=== PATIENT | female | born 1945 | race Caucasian/White ===

== ENCOUNTER → 2016-12-29 | Outpatient (CLI) | payer MEDICARE, OTHER ==
[2016-12-29 08:46] LABS: CHLORIDE,CL 99 mmol/L (98-110); SODIUM,NA 141 mmol/L (136-146)
== END ==
LOC: MW.CHFP 07:56
PROVIDERS: ATTEND Physician Assistant
DX: E11.9 Type 2 diabetes mellitus without complications (principal); I10 Essential (primary) hypertension; E78.5 Hyperlipidemia, unspecified; M79.7 Fibromyalgia
CPT/HCPCS: 36415; 80053; 80061; 83036; 99214

== ENCOUNTER → 2017-01-25 | Outpatient (CLI) | payer MEDICARE, OTHER | LOC: MW.CHFP 08:00 | PROVIDERS: ATTEND Physician Assistant | DX: R22.0 Localized swelling, mass and lump, head (principal); M79.7 Fibromyalgia; E66.9 Obesity, unspecified; Z68.41 Body mass index [BMI] 40.0-44.9, adult | CPT/HCPCS: G0463 ==

== ENCOUNTER → 2017-02-09 | Outpatient (CLI) | payer MEDICARE, OTHER | END | disposition home or self-care (01) | LOC: MW.MNT 14:03 | PROVIDERS: ATTEND Physician Assistant | DX: E66.09 Other obesity due to excess calories (principal); E11.9 Type 2 diabetes mellitus without complications; Z68.41 Body mass index [BMI] 40.0-44.9, adult | CPT/HCPCS: 97802 ==

== ENCOUNTER 2017-04-05 00:53 | Observation (INO) | payer MEDICARE, OTHER ==
[2017-04-05] MEDS ORDERED: Sodium Chloride 0.9% 10 ML Syringe FLUSH PRN (01:09)
[2017-04-05] MEDS ORDERED: Sodium Chloride 0.9% 2.5 ML Syringe FLUSH PRN (01:09)
[2017-04-05] MEDS ORDERED: methylPREDNISolone Sodium Succinate 125 MG/2 ML SDV IVPUSH ONE (01:11)
[2017-04-05] MEDS ORDERED: Famotidine 20 MG/2 ML SDV IVPUSH ONE (01:11)
[2017-04-05] MEDS ORDERED: diphenhydrAMINE 50 MG/ML SDV IVPUSH ONE (01:11)
[2017-04-05] MEDS ORDERED: Sodium Chloride 0.9% 1,000 ML IV SCH (01:15)
--- NOTE | 2017-04-05 01:15 | EDM.PDOC ---
[id number] TONGUE AND FACE Time Seen by Provider: 04/05/17 00:59 - History of Present Illness INITIAL COMMENTS - FREE TEXT/NARRATIVE: HISTORY AND PHYSICAL: History of present illness: Patient is a 72-year-old female with history of hypertension who meds include lisinopril who presents with a concern tongue lip and facial swelling that began tonight she has had similar episodes in the past but not quite this severe she has difficulty speaking but does not complain of shortness of breath chest pain nausea vomiting fever chills Review of systems: As per history of present illness and below otherwise all systems reviewed and negative. Past medical history: As per history of present illness and as reviewed below otherwise noncontributory. Surgical history: As per history of present illness and as reviewed below otherwise noncontributory. Social history: No reported history of drug or alcohol abuse. Family history: As per history of present illness and as reviewed below otherwise noncontributory. Physical exam: HEENT: Atraumatic, normocephalic, pupils reactive, negative for conjunctival pallor or scleral icterus, mucous membranes moist, patient noted to have edema of her lips tongue and submental area Lungs: Clear to auscultation, breath sounds equal bilaterally, chest nontender. Heart: S1S2, regular, negative for clicks, rubs, or JVD. Abdomen: Soft, nondistended, nontender. Negative for masses or hepatosplenomegaly. Negative for costovertebral tenderness. Pelvis: Stable nontender. Genitourinary: Deferred. Rectal: Deferred. Extremities: Atraumatic, negative for cords or calf pain. Neurovascular unremarkable. Neuro: Awake, alert, oriented. Cranial nerves II through XII unremarkable. Cerebellum unremarkable. Motor and sensory unremarkable throughout. Exam nonfocal. Diagnostics: CBC CMP EKG chest x-ray soft tissue neck PT/INR Therapeutics: IV O2 monitor Solu-Medrol 125 mg IV Benadryl 50 mg IV Impression: #1 angioedema Definitive disposition and diagnosis as appropriate pending reevaluation and review of above. - Related Data Allergies Allergy/AdvReac Type Severity Reaction Status Date / Time lisinopril Allergy Other Verified 04/05/17 08:19 oxycodone Allergy Nausea Verified 04/05/17 02:09 Home Meds: Home Meds Aspirin [Halfprin] 81 mg PO BEDTIME 05/06/14 [History] Calcium Carbonate/Vitamin D3 [Calcium 600 + Vit D Tablet] 1 each PO BEDTIME [History] Multivitamin [Multivitamins] 1 each PO DAILY 05/06/14 [History] [place]-3 Fatty Acids/Fish Oil [Cvs Fish Oil 1,000 mg Softgel] 1 each PO BEDTIME 05/06/14 [History] Simvastatin [Zocor] 20 mg PO BEDTIME 05/06/14 [History] Ubidecarenone [Co Q-10] 100 mg PO BEDTIME 05/06/14 [History] metFORMIN [Glucophage] 1,000 mg PO BID 05/06/14 [History] Hydrochlorothiazide 25 mg PO DAILY #30 tablet 04/05/17 [Rx] Potassium Chloride [Klor-Con 10] 10 meq PO DAILY #30 tab.er 04/05/17 [Rx] amLODIPine [Norvasc] 10 mg PO DAILY #30 tablet 04/05/17 [Rx] Past Medical History Other HEENT History: wears glasses, has top and bottom dentures Cardiovascular History: Reports: High Cholesterol, Hypertension Respiratory History: Reports: None Gastrointestinal History: Reports: Colon Polyp, Other (See Below) Other Gastrointestinal History: occasional heartburn Genitourinary History: Reports: Renal Calculus Other Genitourinary History: hx kidney stones 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 Musculoskeletal History: Reports: Back Pain, Chronic, Osteoarthritis Other Musculoskeletal History: cris knee pain Neurological History: Reports: None Psychiatric History: Reports: None Endocrine/Metabolic History: Reports: Diabetes, Type II, Obesity/BMI 30+, Osteopenia Hematologic History: Reports: None Immunologic History: Reports: None Oncologic (Cancer) History: Reports: None Dermatologic History: Reports: None - Past Surgical History Head Surgeries/Procedures: Reports: None GI Surgical History: Reports: Colonoscopy Other Female Surgeries/Procedures: hx of hysteroscopy for uterine fibroids Social & Family History - Tobacco Use Smoking Status *Q: Former Smoker Years of Tobacco use: 30 Used Tobacco, but Quit: Yes - Alcohol Use Days Per Week of Alcohol Use: 0 Number of Drinks Per Day: 0 Total Drinks Per Week: 0 - Recreational Drug Use Recreational Drug Use: No Drug Use in Last 12 Months: No ED ROS GENERAL - Review of Systems Review Of Systems: ROS reveals no pertinent complaints other than HPI. ED EXAM, GENERAL - Physical Exam Exam: See Below (See dictation) Course - Vital Signs Last Recorded V/S: Last Vital Signs Temp 36.2 C 04/05/17 11:00 Pulse 79 04/05/17 04:00 Resp 21 H 04/05/17 16:00 BP 136/73 04/05/17 16:00 Pulse Ox 94 L 04/05/17 16:00 - Orders/Labs/Meds Labs: Laboratory Tests 04/05/17 04/05/17 04/05/17 Range/Units 01:25 01:25 01:25 WBC 11.40 H (4.0-11.0) K/uL RBC 4.83 (4.30-5.90) M/uL Hgb 12.7 (12.0-16.0) g/dL Hct 40.5 (36.0-46.0) % MCV 83.9 (80.0-98.0) fL MCH 26.3 L (27.0-32.0) pg MCHC 31.4 (31.0-37.0) g/dL RDW Std Deviation 48.9 (28.0-62.0) fl RDW Coeff of Eleuterio 16 H (11.0-15.0) % Plt Count 340 (150-400) K/uL MPV 10.20 (7.40-12.00) fL Neut % (Auto) 49.2 (48.0-80.0) % Lymph % (Auto) 37.4 (16.0-40.0) % [place] % (Auto) 5.9 (0.0-15.0) % Eos % (Auto) 7.1 H (0.0-7.0) % Baso % (Auto) 0.4 (0.0-1.5) % Neut # (Auto) 5.6 (1.4-5.7) K/uL Lymph # (Auto) 4.3 H (0.6-2.4) K/uL [place] # (Auto) 0.7 (0.0-0.8) K/uL Eos # (Auto) 0.8 H (0.0-0.7) K/uL Baso # (Auto) 0.0 (0.0-0.1) K/uL Nucleated RBC % 0.0 /100WBC Nucleated RBCs # 0 K/uL INR 0.99 (0.86-1.11) Sodium 140 (136-146) mmol/L Potassium 4.2 (3.5-5.1) mmol/L Chloride 100 (98-110) mmol/L Carbon Dioxide 29 (21-31) mmol/L BUN 14 (6.0-23.0) mg/dL Creatinine 0.9 (0.6-1.5) mg/dL Est Cr Clr Drug Dosing 51.28 mL/min Estimated GFR (MDRD) > 60.0 ml/min Glucose 116 H (60-110) mg/dL Calcium 9.5 (8.8-10.8) mg/dL Total Bilirubin 0.3 (0.1-1.5) mg/dL AST 26 (5-40) IU/L ALT 24 (8-54) IU/L Alkaline Phosphatase 78 (40-150) Total Protein 7.4 (6.0-8.0) g/dL Albumin 3.5 (3.4-4.8) g/dL Globulin 3.9 H (2.0-3.5) g/dL Albumin/Globulin Ratio 0.9 L (1.3-2.8) Meds: Medications Discontinued Medications Generic Name Dose Route Start Last Admin Trade Name Freq PRN Reason Stop Dose Admin Acetaminophen 650 mg 04/05/17 07:03 Tylenol PO Q4H PRN Pain (Mild 1-3)/fever Amlodipine Besylate 10 mg 04/05/17 09:00 04/05/17 08:31 Norvasc PO 10 mg DAILY [facility] Administration Aspirin 81 mg 04/05/17 21:00 Halfprin PO BEDTIME [facility] Calcium Carbonate 1 tab 04/05/17 21:00 Caltrate 600+D 1500 Mg-400 Units PO BEDTIME [facility] Diphenhydramine HCl 50 mg 04/05/17 01:11 04/05/17 01:44 Benadryl IVPUSH 04/05/17 01:12 50 mg ONETIME ONE Administration Diphenhydramine HCl 50 mg 04/05/17 07:45 04/05/17 13:08 Benadryl IVPUSH 50 mg Q6H [facility] Administration Epinephrine HCl 0.3 mg 04/05/17 03:28 04/05/17 04:28 Adrenalin 1:1000 SUBCUT 04/05/17 03:29 Not Given ONETIME ONE Epinephrine HCl 0.3 mg 04/05/17 04:30 04/05/17 04:27 Adrenalin 1:1000 SUBCUT 04/05/17 04:31 0.3 mg ONETIME ONE Administration Famotidine 20 mg 04/05/17 01:11 04/05/17 01:45 Pepcid IVPUSH 04/05/17 01:12 20 mg ONETIME ONE Administration Fish Oil 1 gm 04/05/17 21:00 Fish Oil PO BEDTIME [facility] Hydrochlorothiazide 25 mg 04/05/17 09:00 04/05/17 08:32 Hydrochlorothiazide PO 25 mg DAILY [facility] Administration Sodium Chloride 1,000 mls @ 125 mls/hr 04/05/17 01:15 04/05/17 01:44 Normal Saline IV 125 mls/hr STAT [facility] Administration Insulin Aspart 0 unit 04/05/17 06:45 04/05/17 16:49 Novolog SUBCUT 2 units ACBED [facility] Administration Protocol Metformin HCl 1,000 mg 04/05/17 09:00 04/05/17 08:31 Glucophage PO 1,000 mg BID [facility] Administration Methylprednisolone Sodium Succinate 125 mg 04/05/17 01:11 04/05/17 01:43 Solu-Medrol IVPUSH 04/05/17 01:12 125 mg ONETIME ONE Administration Methylprednisolone Sodium Succinate 125 mg 04/05/17 07:45 04/05/17 13:09 Solu-Medrol IVPUSH 125 mg Q6H [facility] Administration Multivitamins/Minerals 1 tab 04/05/17 09:00 04/05/17 08:32 Thera M Plus PO 1 tab DAILY [facility] Administration Non-Formulary Medication 100 mg 04/05/17 21:00 Ubidecarenone PO BEDTIME [facility] Nabumetone [Relafen] 1 each 04/05/17 09:00 04/05/17 08:40 1,000 Mg PO Not Given DAILY [facility] Potassium Chloride 10 meq 04/05/17 09:00 04/05/17 08:32 Klor-Con 10 PO 10 meq DAILY [facility] Administration Simvastatin 20 mg 04/05/17 21:00 Zocor PO BEDTIME [facility] Sodium Chloride 10 ml 04/05/17 01:09 Saline Flush FLUSH ASDIRECTED PRN Keep Vein Open Sodium Chloride 2.5 ml 04/05/17 01:09 Saline Flush FLUSH ASDIRECTED PRN Keep Vein Open Temazepam 15 mg 04/05/17 07:03 Restoril PO BEDTIME PRN Sleep Departure - Departure Time of Disposition: 02:00 Disposition: Admitted As Inpatient 68 Condition: Good Clinical Impression: Angioedema - Discharge Information
[2017-04-05 01:48] LABS: CHLORIDE,CL 100 mmol/L (98-110); SODIUM,NA 140 mmol/L (136-146)
[2017-04-05] MEDS ORDERED: EPINEPHrine 1:1000 1 MG/ML SDV SUBCUT ONE (03:28)
[2017-04-05] MEDS ORDERED: EPINEPHrine 1:1000 1 MG/1 ML Amp SUBCUT ONE (04:30)
--- NOTE | 2017-04-05 06:29 | PCM.HP ---
H&P History of Present Illness - General Date of Service: 04/05/17 Admit Problem/Dx: Admission Diagnosis/Problem Admission Diagnosis/Problem Angioedema Source of Information: Patient, Provider - History of Present Illness Initial Comments - Free Text/Narative: she presented to the ED with complaint of swelling of her tongue and a feeling of tightness and impending airway obstruction in her throat. She is already feeling much better. She has been on lisinopril on an ongoing basis. It was not started recently. - Related Data Allergies/Adverse Reactions: Allergies Allergy/AdvReac Type Severity Reaction Status Date / Time oxycodone Allergy Nausea Verified 04/05/17 02:09 Home Medications: Home Meds Aspirin [Halfprin] 81 mg PO BEDTIME 05/06/14 [History] Calcium Carbonate/Vitamin D3 [Calcium 600 + Vit D Tablet] 1 each PO BEDTIME [History] Lisinopril/Hydrochlorothiazide [Lisinopril-Hctz 20-12.5 mg Tab] 20 mg PO DAILY 05/06/14 [History] Multivitamin [Multivitamins] 1 each PO DAILY 05/06/14 [History] [place]-3 Fatty Acids/Fish Oil [Cvs Fish Oil 1,000 mg Softgel] 1 each PO BEDTIME 05/06/14 [History] Simvastatin [Zocor] 20 mg PO BEDTIME 05/06/14 [History] Ubidecarenone [Co Q-10] 100 mg PO BEDTIME 05/06/14 [History] metFORMIN [Glucophage] 1,000 mg PO BID 05/06/14 [History] Nabumetone [Relafen] 1,000 mg PO DAILY 10/08/15 [History] Past Medical History Other HEENT History: wears glasses, has top and bottom dentures Cardiovascular History: Reports: High Cholesterol, Hypertension. Denies: Heart Failure, Heart Valve Replacement, [place], Pulmonary Hypertension Respiratory History: Reports: None. Denies: Croup Gastrointestinal History: Reports: Colon Polyp, Other (See Below). Denies: Cirrhosis Other Gastrointestinal History: occasional heartburn Genitourinary History: Reports: Renal Calculus. 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 Musculoskeletal History: Reports: Back Pain, Chronic, Osteoarthritis, Other ( See Below) (she reports a history of fibromyalgia) Other Musculoskeletal History: cris knee pain Neurological History: Reports: None Psychiatric History: Reports: None Endocrine/Metabolic History: Reports: Diabetes, Type II, Obesity/BMI 30+, Osteopenia Hematologic History: Reports: None Immunologic History: Reports: None, Other (See Below) Oncologic (Cancer) History: Reports: None Dermatologic History: Reports: None - Infectious Disease History Infectious Disease History: Reports: Chicken Pox - Past Surgical History Head Surgeries/Procedures: Reports: None HEENT Surgical History: Reports: None GI Surgical History: Reports: Colonoscopy Other Female Surgeries/Procedures: hx of hysteroscopy for uterine fibroids Social & Family History - Family History Family Medical History: Noncontributory HEENT: Reports: None Cardiac: Reports: High Cholesterol, Hypertension Respiratory: Reports: None GI: Reports: None : Reports: None OBGYN: Reports: None Musculoskeletal: Reports: None Neurological: Reports: None Psychiatric: Reports: None Endocrine/Metabolic: Reports: None Hematologic: Reports: None Immunologic: Reports: None Dermatologic: Reports: None Oncologic: Reports: None - Tobacco Use Smoking Status *Q: Former Smoker Years of Tobacco use: 30 Used Tobacco, but Quit: Yes Month Tobacco Last Used: Sep 2004 Tobacco Use Comment: Quit smoking Sep 2004 Second Hand Smoke Exposure: No - Caffeine Use Caffeine Use: Reports: Coffee Caffeine Use Comment: 3cups/day - Alcohol Use Days Per Week of Alcohol Use: 0 Number of Drinks Per Day: 0 Total Drinks Per Week: 0 - Recreational Drug Use Recreational Drug Use: No Drug Use in Last 12 Months: No H&P Review of Systems - Review of Systems: Review Of Systems: See Below General: Denies: Fever, Chills Pulmonary: Denies: Shortness of Breath, Wheezing Cardiovascular: Denies: Chest Pain Gastrointestinal: Denies: Abdominal Pain, Black Stool, Bloody Stool, Vomiting Genitourinary: Denies: Dysuria, Frequency, Hematuria Skin: Denies: Jaundice Exam - Exam Exam: See Below - Vital Signs Vital Signs: Last Vital Signs Temp 97.5 F 04/05/17 00:59 Pulse 93 04/05/17 00:59 Resp 20 04/05/17 00:59 BP 165/74 H 04/05/17 00:59 Pulse Ox 99 04/05/17 00:59 Weight: 112.6 kg - Exam General: Alert, Oriented, Cooperative HEENT: Mucosa Moist & [place], Other (slight dysarthria; slight diffuse tongue swelling; no feeling now of impending airway obstruction) Neck: Supple, Trachea Midline Lungs: Clear to Auscultation, Normal Respiratory Effort Cardiovascular: Regular Rate, Regular Rhythm Abdomen: Soft. No: Tenderness (Female) Exam: Deferred Rectal (Female) Exam: Deferred Extremities: No: Clubbing, Edema Neurological: Cranial Nerves Intact. No: Normal Speech (slight dysarthria) Neuro Extensive - Motor, Sensory, Reflexes: No: Tongue Deviation (L), Facial palsy (L), Facial Palsy (R) - Patient Data Result Diagrams: 04/05/17 01:25 04/05/17 01:25 *Q Meaningful Use (ADM) - VTE *Q VTE Criteria *Q: - Stroke *Q Stroke Criteria *Q: - AMI *Q AMI Criteria *Q: - Problem List (1) Angioedema SNOMED Code(s): 54665119 ICD Code: T78.3XXA - ANGIONEUROTIC EDEMA, INITIAL ENCOUNTER Status: Acute Current Visit: Yes Problem List Initiated/Reviewed/Updated: Yes Orders Last 24hrs: Active Orders 24 hr Category Date Time Status NPO Now [Nothing per Oral Now Diet] [DIET] Diet 04/05/17 Breakfast Active Aspirin [Halfprin] Med 04/05/17 21:00 Ordered 81 mg PO BEDTIME Calcium Carbonate/Vitamin D3 [Calcium 600 + Vit D Med 04/05/17 21:00 Ordered Tablet] 1 each PO BEDTIME Fish Oil/[place]-3 Fatty Acids [Fish Oil] Med 04/05/17 21:00 Ordered 1 each PO BEDTIME Multivitamin [Multivitamins] Med 04/05/17 09:00 Ordered 1 each PO DAILY Nabumetone [Relafen] Med 04/05/17 09:00 Ordered 1,000 mg PO DAILY Simvastatin [Zocor] Med 04/05/17 21:00 Ordered 20 mg PO BEDTIME Ubidecarenone Med 04/05/17 21:00 Ordered 100 mg PO BEDTIME diphenhydrAMINE [Benadryl] Med 04/05/17 07:45 Active 50 mg IVPUSH Q6H metFORMIN [Glucophage] Med 04/05/17 09:00 Ordered 1,000 mg PO BID methylPREDNISolone Sod Succ [Solu-MEDROL] Med 04/05/17 07:45 Active 125 mg IVPUSH Q6H Medication Orders Diphenhydramine HCl (Benadryl) 50 mg IVPUSH Q6H [facility] Methylprednisolone Sodium Succinate (Solu-Medrol) 125 mg IVPUSH Q6H [facility] Non-Formulary Medication (Calcium Carbonate/Vitamin D3 [Calcium 600 + Vit D Tablet]) 1 each PO BEDTIME [facility] Sodium Chloride (Saline Flush) 10 ml FLUSH ASDIRECTED PRN PRN Reason: Keep Vein Open Sodium Chloride (Saline Flush) 2.5 ml FLUSH ASDIRECTED PRN PRN Reason: Keep Vein Open Assessment/Plan Comment:: see orders possible discharge later today or tomorrow am. hold lisinopril alternate antihypertensive. Paul Vasquez MD
[2017-04-05] MEDS: Insulin Aspart 100 Units/ML 3 ML Pen SUBCUT SCH ×4 (07:02→16:49)
[2017-04-05] MEDS ORDERED: Acetaminophen 325 MG Tab PO PRN (07:03)
[2017-04-05] MEDS ORDERED: Temazepam 15 MG Cap PO PRN (07:03)
[2017-04-05] MEDS: methylPREDNISolone Sodium Succinate 125 MG/2 ML SDV IVPUSH SCH ×2 (08:33→13:09)
[2017-04-05] MEDS: diphenhydrAMINE 50 MG/ML SDV IVPUSH SCH ×2 (08:34→13:08)
[2017-04-05] MEDS ORDERED: amLODIPine 5 MG Tab PO SCH (09:00)
[2017-04-05] MEDS ORDERED: metFORMIN 500 MG Tab PO SCH (09:00)
[2017-04-05] MEDS ORDERED: Multivitamins with Iron/Calcium/Folic Acid/Minerals Tab PO SCH (09:00)
[2017-04-05] MEDS ORDERED: Potassium Chloride 10 MEQ Tab.ER PO SCH (09:00)
[2017-04-05] MEDS ORDERED: Hydrochlorothiazide 25 MG Tab PO SCH (09:00)
[2017-04-05] MEDS ORDERED: NABUMETONE 1000 MG PO SCH (09:00)
--- NOTE | 2017-04-05 11:16 | CR ---
EXAM DATE: 04/05/17 PATIENT'S AGE: 72 Patient: MONIKA KOHLER Facility: [place], [place] Site . Site : 1945 Study: XRay Chest [id number]/27/2017 2:08:43 AM Ordering Physician: Gilma Sung Final Report: INDICATION: Pain and tongue swelling and 1900 hours tonight TECHNIQUE: Chest 2 views. COMPARISON: None FINDINGS: Cardiovascular and mediastinum: Cardiomegaly. Mediastinum is within normal limits. Lungs and pleural spaces: Lungs are clear. No sign of infiltrate or mass. No sign of pleural effusion. No pneumothorax. Bones and soft tissues: No significant findings. IMPRESSION: No sign of acute disease. Dictated by Rosalee Boateng MD @ Apr 05 2017 2:28AM (Electronic Signature) Report Signed by Proxy. ZOILA
--- NOTE | 2017-04-05 11:17 | CR ---
EXAM DATE: 04/05/17 PATIENT'S AGE: 72 Patient: MONIKA KOHLER Facility: [place], [place] Site . Site : 1945 Study: Ronnie ST Neck [id number]/27/[id number] 2:09:11 AM Ordering Physician: Gilma Sung Final Report: INDICATION: Tongue swelling since 1900 hours tonight TECHNIQUE: Soft tissue neck 1 view. COMPARISON: None FINDINGS: Significant soft tissue swelling of the tongue. The airway is patent and normal. Epiglottis is appears thickened. The retropharyngeal soft tissues are normal. No radiopaque foreign body. No obvious masses. The visualized cervical spine demonstrates no significant findings. IMPRESSION: Significant soft tissue swelling of the tongue consistent with clinical history. There also appears to be thickening of the epiglottis. This could be secondary to the soft tissue process involving the tongue although acute epiglottitis cannot be entirely excluded. Dictated by Rosalee Boateng MD @ Apr 05 2017 2:29AM ----- ADDENDUM ----- Addendum: These findings were communicated with Dr. Dillard at 2:49 a.m. on April 05, 2017. Dictated by Rosalee Boateng MD @ Apr 05 2017 3:34AM (Electronic Signature) Report Signed by Proxy. ZOILA
[2017-04-05 16:36] VITALS: BP 136/73
--- NOTE | 2017-04-05 17:06 | PCM.DCSUM1 ---
Discharge Summary - Hospital Course Brief History: she was admitted with angioedema thought secondary to lisinopril. - Discharge Data Discharge Date: 04/05/17 Discharge Disposition: Home, Self-Care 01 Condition: Good - Discharge Diagnosis/Problem(s) (1) Angioedema SNOMED Code(s): 62329702 ICD Code: T78.3XXA - ANGIONEUROTIC EDEMA, INITIAL ENCOUNTER Status: Acute Current Visit: Yes - Patient Summary/Data Hospital Course: her lisinopril was discontinued. She was treated with intravenous solumedrol, benadryl and subcutaneous epinephrine. She improved and feels at baseline at discharge. Her oxygen saturation is 92% on RA at discharge. She was started on hctz and norvasc for her blood pressure. She is normotensive at discharge. She has a follow up with DR Blair Kulkarni within one week. - Discharge Plan Prescriptions/Med Rec: Hydrochlorothiazide 25 mg PO DAILY #30 tablet Potassium Chloride [Klor-Con 10] 10 meq PO DAILY #30 tab.er amLODIPine [Norvasc] 10 mg PO DAILY #30 tablet Home Medications: Home Meds Aspirin [Halfprin] 81 mg PO BEDTIME 05/06/14 [History] Calcium Carbonate/Vitamin D3 [Calcium 600 + Vit D Tablet] 1 each PO BEDTIME [History] Multivitamin [Multivitamins] 1 each PO DAILY 05/06/14 [History] [place]-3 Fatty Acids/Fish Oil [Cvs Fish Oil 1,000 mg Softgel] 1 each PO BEDTIME 05/06/14 [History] Simvastatin [Zocor] 20 mg PO BEDTIME 05/06/14 [History] Ubidecarenone [Co Q-10] 100 mg PO BEDTIME 05/06/14 [History] metFORMIN [Glucophage] 1,000 mg PO BID 05/06/14 [History] Hydrochlorothiazide 25 mg PO DAILY #30 tablet 04/05/17 [Rx] Potassium Chloride [Klor-Con 10] 10 meq PO DAILY #30 tab.er 04/05/17 [Rx] amLODIPine [Norvasc] 10 mg PO DAILY #30 tablet 04/05/17 [Rx] Patient Handouts: Angioedema, [id number] Referrals: Blair Lopez DO [Physician] - 04/14/17 10:00 am - Patient Data Vitals - Most Recent: Last Vital Signs Temp 97.2 F 04/05/17 11:00 Pulse 79 04/05/17 04:00 Resp 21 H 04/05/17 16:00 BP 136/73 04/05/17 16:00 Pulse Ox 94 L 04/05/17 16:00 Weight - Most Recent: 112.6 kg I&O - Last 24 hours: Intake & Output 04/05/17 04/05/17 04/05/17 06:59 14:59 22:59 Intake Total 250 650 Output Total 450 Balance 250 200 Lab Results - Last 24 hrs: Laboratory Results - last 24 hr 04/05/17 04/05/17 04/05/17 Range/Units 06:56 12:09 16:47 POC Glucose 228 H 146 H 181 H (60-110) mg/dL Med Orders - Current: Current Medications Acetaminophen (Tylenol) 650 mg PO Q4H PRN PRN Reason: Pain (Mild 1-3)/fever Amlodipine Besylate (Norvasc) 10 mg PO DAILY [facility] Last Admin: 04/05/17 08:31 Dose: 10 mg Aspirin (Halfprin) 81 mg PO BEDTIME [facility] Calcium Carbonate (Caltrate 600+D 1500 Mg-400 Units) 1 tab PO BEDTIME [facility] Diphenhydramine HCl (Benadryl) 50 mg IVPUSH Q6H [facility] Last Admin: 04/05/17 13:08 Dose: 50 mg Fish Oil (Fish Oil) 1 gm PO BEDTIME [facility] Hydrochlorothiazide (Hydrochlorothiazide) 25 mg PO DAILY [facility] Last Admin: 04/05/17 08:32 Dose: 25 mg Insulin Aspart (Novolog) 0 unit SUBCUT ACBED [facility] PRN Reason: Protocol Last Admin: 04/05/17 16:49 Dose: 2 units Metformin HCl (Glucophage) 1,000 mg PO BID [facility] Last Admin: 04/05/17 08:31 Dose: 1,000 mg Methylprednisolone Sodium Succinate (Solu-Medrol) 125 mg IVPUSH Q6H [facility] Last Admin: 04/05/17 13:09 Dose: 125 mg Multivitamins/Minerals (Thera M Plus) 1 tab PO DAILY [facility] Last Admin: 04/05/17 08:32 Dose: 1 tab Nabumetone [Relafen] (1,000 Mg) 1 each PO DAILY [facility] Last Admin: 04/05/17 08:40 Dose: Not Given Potassium Chloride (Klor-Con 10) 10 meq PO DAILY [facility] Last Admin: 04/05/17 08:32 Dose: 10 meq Simvastatin (Zocor) 20 mg PO BEDTIME [facility] Sodium Chloride (Saline Flush) 10 ml FLUSH ASDIRECTED PRN PRN Reason: Keep Vein Open Sodium Chloride (Saline Flush) 2.5 ml FLUSH ASDIRECTED PRN PRN Reason: Keep Vein Open Temazepam (Restoril) 15 mg PO BEDTIME PRN PRN Reason: Sleep Discontinued Medications Diphenhydramine HCl (Benadryl) 50 mg IVPUSH ONETIME ONE Stop: 04/05/17 01:12 Last Admin: 04/05/17 01:44 Dose: 50 mg Epinephrine HCl (Adrenalin 1:1000) 0.3 mg SUBCUT ONETIME ONE Stop: 04/05/17 03:29 Last Admin: 04/05/17 04:28 Dose: Not Given Epinephrine HCl (Adrenalin 1:1000) 0.3 mg SUBCUT ONETIME ONE Stop: 04/05/17 04:31 Last Admin: 04/05/17 04:27 Dose: 0.3 mg Famotidine (Pepcid) 20 mg IVPUSH ONETIME ONE Stop: 04/05/17 01:12 Last Admin: 04/05/17 01:45 Dose: 20 mg Sodium Chloride (Normal Saline) 1,000 mls @ 125 mls/hr IV STAT [facility] Last Admin: 04/05/17 01:44 Dose: 125 mls/hr Methylprednisolone Sodium Succinate (Solu-Medrol) 125 mg IVPUSH ONETIME ONE Stop: 04/05/17 01:12 Last Admin: 04/05/17 01:43 Dose: 125 mg Non-Formulary Medication (Ubidecarenone) 100 mg PO BEDTIME [facility] *Q Meaningful Use (DIS) - VTE *Q VTE Criteria *Q: - Stroke *Q Stroke Criteria *Q: - AMI *Q AMI Criteria *Q:
[2017-04-05] MEDS ORDERED: Non-Formulary Medication 1 Each (Ubidecarenone 100 MG) PO SCH (21:00)
[2017-04-05] MEDS ORDERED: Fish Oil/Omega-3 Fatty Acids 1 Gm Cap PO SCH (21:00)
[2017-04-05] MEDS ORDERED: Simvastatin 20 MG Tab PO SCH (21:00)
[2017-04-05] MEDS ORDERED: Calcium Carbonate/Vitamin D3 1500 MG-400 Units Tab PO SCH (21:00)
[2017-04-05] MEDS ORDERED: Aspirin 81 MG Tab.EC PO SCH (21:00)
== END 2017-04-05 17:25 | disposition home or self-care (01) ==
LOC: MW.ED 00:53 → MW.ICU 01:52
PROVIDERS: ADMIT Family Medicine; ATTEND Family Medicine
DX: T78.3XXA Angioneurotic edema, initial encounter (principal); T46.4X5A Adverse effect of angiotensin-converting-enzyme inhibitors, initial encounter; I10 Essential (primary) hypertension; E78.00 Pure hypercholesterolemia, unspecified; E11.9 Type 2 diabetes mellitus without complications; E66.9 Obesity, unspecified; Z79.84 Long term (current) use of oral hypoglycemic drugs; Z79.82 Long term (current) use of aspirin; Z79.899 Other long term (current) drug therapy; Z98.890 Other specified postprocedural states; Z87.891 Personal history of nicotine dependence
CPT/HCPCS: 36415; 70360; 71020; 80053; 82962; 85025; 85610; 93005; 96361; 96372; 96374; 96375; 96376; 99285; A9270; G0378; J0171; J1200; J1815; J2930; J7040

== ENCOUNTER 2017-05-24 20:27 | Observation (INO) | payer MEDICARE, OTHER ==
[2017-05-24] MEDS ORDERED: diphenhydrAMINE 50 MG/ML SDV IVPUSH ONE (20:44)
[2017-05-24] MEDS ORDERED: methylPREDNISolone Sodium Succinate 125 MG/2 ML SDV IVPUSH ONE (20:44)
[2017-05-24] MEDS ORDERED: Sodium Chloride 0.9% 1,000 ML IV SCH (20:45)
--- NOTE | 2017-05-24 20:50 | EDM.PDOC ---
ED HPI GENERAL MEDICAL PROBLEM - General Chief Complaint: Allergic Reaction Stated Complaint: SWOLLEN TONGUE Time Seen by Provider: 05/24/17 20:38 - History of Present Illness INITIAL COMMENTS - FREE TEXT/NARRATIVE: HISTORY AND PHYSICAL: History of present illness: Patient 9-year-old female history of hypertension and angioedema and was admitted by myself in the recent past for angioedema at that time she was on an TYRELL inhibitor this was discontinued today's episode is less prominent but does again involve angioedema of her tongue she's had no difficulty breathing no throat tightness chest pain or other concern Review of systems: As per history of present illness and below otherwise all systems reviewed and negative. Past medical history: As per history of present illness and as reviewed below otherwise noncontributory. Surgical history: As per history of present illness and as reviewed below otherwise noncontributory. Social history: No reported history of drug or alcohol abuse. Family history: As per history of present illness and as reviewed below otherwise noncontributory. Physical exam: HEENT: Atraumatic, normocephalic, pupils reactive, negative for conjunctival pallor or scleral icterus, mucous membranes moist, throat clear, neck supple, nontender, trachea midline. Lingual angioedema noted Lungs: Clear to auscultation, breath sounds equal bilaterally, chest nontender. Heart: S1S2, regular, negative for clicks, rubs, or JVD. Abdomen: Soft, nondistended, nontender. Negative for masses or hepatosplenomegaly. Negative for costovertebral tenderness. Pelvis: Stable nontender. Genitourinary: Deferred. Rectal: Deferred. Extremities: Atraumatic, negative for cords or calf pain. Neurovascular unremarkable. Neuro: Awake, alert, oriented. Cranial nerves II through XII unremarkable. Cerebellum unremarkable. Motor and sensory unremarkable throughout. Exam nonfocal. Diagnostics: CBC CMP chest x-ray Therapeutics: IV Solu-Medrol 125 mg IV Benadryl 50 mg IV air sampling and monitoring Impression: #1 angioedema #2 history of hypertension Definitive disposition and diagnosis as appropriate pending reevaluation and review of above. - Related Data Allergies Allergy/AdvReac Type Severity Reaction Status Date / Time lisinopril Allergy Other Verified 04/05/17 08:19 oxycodone Allergy Nausea Verified 04/05/17 02:09 Home Meds: Home Meds Aspirin [Halfprin] 81 mg PO BEDTIME 05/06/14 [History] Calcium Carbonate/Vitamin D3 [Calcium 600 + Vit D Tablet] 1 each PO BEDTIME [History] Multivitamin [Multivitamins] 1 each PO DAILY 05/06/14 [History] [place]-3 Fatty Acids/Fish Oil [Cvs Fish Oil 1,000 mg Softgel] 1 each PO BEDTIME 05/06/14 [History] Simvastatin [Zocor] 20 mg PO BEDTIME 05/06/14 [History] Ubidecarenone [Co Q-10] 100 mg PO BEDTIME 05/06/14 [History] metFORMIN [Glucophage] 1,000 mg PO BID 05/06/14 [History] Hydrochlorothiazide 25 mg PO DAILY #30 tablet 04/05/17 [Rx] Potassium Chloride [Klor-Con 10] 10 meq PO DAILY #30 tab.er 04/05/17 [Rx] amLODIPine [Norvasc] 10 mg PO DAILY #30 tablet 04/05/17 [Rx] Past Medical History Other HEENT History: wears glasses, has top and bottom dentures Cardiovascular History: Reports: High Cholesterol, Hypertension Respiratory History: Reports: None Gastrointestinal History: Reports: Colon Polyp, Other (See Below) Other Gastrointestinal History: occasional heartburn Genitourinary History: Reports: Renal Calculus Other Genitourinary History: hx kidney stones 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 Musculoskeletal History: Reports: Back Pain, Chronic, Osteoarthritis Other Musculoskeletal History: cris knee pain Neurological History: Reports: None Psychiatric History: Reports: None Endocrine/Metabolic History: Reports: Diabetes, Type II, Obesity/BMI 30+, Osteopenia Hematologic History: Reports: None Immunologic History: Reports: None Oncologic (Cancer) History: Reports: None Dermatologic History: Reports: None - Infectious Disease History Infectious Disease History: Reports: None - Past Surgical History Head Surgeries/Procedures: Reports: None GI Surgical History: Reports: Colonoscopy Other Female Surgeries/Procedures: hx of hysteroscopy for uterine fibroids Social & Family History - Family History Family Medical History: Noncontributory HEENT: Reports: None Cardiac: Reports: High Cholesterol, Hypertension Respiratory: Reports: None GI: Reports: None : Reports: None OBGYN: Reports: None Musculoskeletal: Reports: None Neurological: Reports: None Psychiatric: Reports: None Endocrine/Metabolic: Reports: None Hematologic: Reports: None Immunologic: Reports: None Dermatologic: Reports: None Oncologic: Reports: None - Tobacco Use Smoking Status *Q: Never Smoker Years of Tobacco use: 30 Used Tobacco, but Quit: Yes Month Tobacco Last Used: Sep 2004 Second Hand Smoke Exposure: No - Caffeine Use Caffeine Use: Reports: Coffee Caffeine Use Comment: 3cups/day - Alcohol Use Days Per Week of Alcohol Use: 0 Number of Drinks Per Day: 0 Total Drinks Per Week: 0 - Recreational Drug Use Recreational Drug Use: No Drug Use in Last 12 Months: No ED ROS ALLERGIC REACTION - Review of Systems Review Of Systems: ROS reveals no pertinent complaints other than HPI. ED EXAM GENERAL NO PERIP PULSE - Physical Exam Exam: See Below (See dictation) Course - Vital Signs Last Recorded V/S: Last Vital Signs Temp 36.2 C 05/24/17 20:38 Pulse 104 H 05/24/17 20:38 Resp 18 05/24/17 20:38 BP 195/88 H 05/24/17 20:38 Pulse Ox 94 L 05/24/17 20:38 - Orders/Labs/Meds Orders: Active Orders 24 hr Category Date Time Status Patient Status [ADT] Stat ADT 05/24/17 20:46 Ordered EKG Documentation Completion [RC] STAT Care 05/24/17 20:46 Ordered Pulse Oximetry [RC] ASDIRECTED Care 05/24/17 20:46 Ordered Chest 1V Frontal [CR] Stat Exams 05/24/17 20:46 Ordered CBC WITH AUTO DIFF [HEME] Stat Lab 05/24/17 20:44 Ordered COMPREHENSIVE METABOLIC PN,CMP [CHEM] Stat Lab 05/24/17 20:44 Ordered Sodium Chloride 0.9% [Normal Saline] 1,000 ml Med 05/24/17 20:45 Ordered IV STAT diphenhydrAMINE [Benadryl] Med 05/24/17 20:44 Once 50 mg IVPUSH ONETIME ONE methylPREDNISolone Sod Succ [Solu-MEDROL] Med 05/24/17 20:44 Once 125 mg IVPUSH ONETIME ONE Departure - Departure Time of Disposition: 20:49 Disposition: Refer to Observation Condition: Good Clinical Impression: Angioedema, History of hypertension - Discharge Information - My Orders Last 24 Hours: My Active Orders 05/24/17 20:44 CBC WITH AUTO DIFF [HEME] Stat COMPREHENSIVE METABOLIC PN,CMP [CHEM] Stat diphenhydrAMINE [Benadryl] 50 mg IVPUSH ONETIME ONE methylPREDNISolone Sod Succ [Solu-MEDROL] 125 mg IVPUSH ONETIME ONE 05/24/17 20:45 Sodium Chloride 0.9% [Normal Saline] 1,000 ml IV STAT 05/24/17 20:46 Patient Status [ADT] Stat EKG Documentation Completion [RC] STAT Pulse Oximetry [RC] ASDIRECTED Chest 1V Frontal [CR] Stat - Assessment/Plan Last 24 Hours: My Active Orders 05/24/17 20:44 CBC WITH AUTO DIFF [HEME] Stat COMPREHENSIVE METABOLIC PN,CMP [CHEM] Stat diphenhydrAMINE [Benadryl] 50 mg IVPUSH ONETIME ONE methylPREDNISolone Sod Succ [Solu-MEDROL] 125 mg IVPUSH ONETIME ONE 05/24/17 20:45 Sodium Chloride 0.9% [Normal Saline] 1,000 ml IV STAT 05/24/17 20:46 Patient Status [ADT] Stat EKG Documentation Completion [RC] STAT Pulse Oximetry [RC] ASDIRECTED Chest 1V Frontal [CR] Stat
[2017-05-24] MEDS ORDERED: Sodium Chloride 0.9% 2.5 ML Syringe FLUSH PRN (23:34)
[2017-05-24] MEDS ORDERED: Sodium Chloride 0.9% 10 ML Syringe FLUSH PRN (23:34)
[2017-05-24] MEDS ORDERED: Acetaminophen 325 MG Tab PO PRN (23:34)
[2017-05-24] MEDS ORDERED: NS + KCl 20mEq/L 1,000 ML IV SCH (23:45)
[2017-05-25] MEDS ORDERED: methylPREDNISolone Sodium Succinate 125 MG/2 ML SDV IVPUSH SCH (05:00)
[2017-05-25] MEDS ORDERED: Insulin Aspart 100 Units/ML 3 ML Pen SUBCUT SCH (07:30)
[2017-05-25 10:44] VITALS: BP 155/75
--- NOTE | 2017-05-25 11:01 | PCM.HP ---
<EmeliaJuanjose Z - Last Filed: 05/25/17 10:56> H&P History of Present Illness - General Date of Service: 05/24/17 Admit Problem/Dx: Admission Diagnosis/Problem Admission Diagnosis/Problem Angioedema Source of Information: Patient - History of Present Illness Initial Comments - Free Text/Narative: This is 72-year-old female who is here presently secondary to a repeat episode of angioedema. She has history of hypertension and was on an TYRELL inhibitor previously which she ended up having an angiogram edema episode and was then discontinued on the face. She's having a repeat episode of her angioedema primarily following her tongue. She is denying any breathing difficulties, any throat tightness reclosure, any chest pain, or shortness of breath. She is denying any cough, no nausea or vomiting, no diarrhea or constipation. Patient is just simply concerned because of the acute onset of the angioedema and her previous episode. Patient shall be admitted for observation to ensure no respiratory compromise or further decompensation. Onset of Symptoms: Reports: Sudden - Related Data Allergies/Adverse Reactions: Allergies Allergy/AdvReac Type Severity Reaction Status Date / Time lisinopril Allergy Other Verified 04/05/17 08:19 oxycodone Allergy Nausea Verified 04/05/17 02:09 Home Medications: Home Meds Aspirin [Halfprin] 81 mg PO BEDTIME 05/06/14 [History] Calcium Carbonate/Vitamin D3 [Calcium 600 + Vit D Tablet] 1 each PO BEDTIME [History] Multivitamin [Multivitamins] 1 each PO DAILY 05/06/14 [History] [place]-3 Fatty Acids/Fish Oil [Cvs Fish Oil 1,000 mg Softgel] 1 each PO BEDTIME 05/06/14 [History] Simvastatin [Zocor] 20 mg PO BEDTIME 05/06/14 [History] Ubidecarenone [Co Q-10] 100 mg PO BEDTIME 05/06/14 [History] metFORMIN [Glucophage] 1,000 mg PO BID 05/06/14 [History] Hydrochlorothiazide 25 mg PO DAILY #30 tablet 04/05/17 [Rx] Potassium Chloride [Klor-Con 10] 10 meq PO DAILY #30 tab.er 04/05/17 [Rx] amLODIPine [Norvasc] 10 mg PO DAILY #30 tablet 04/05/17 [Rx] Prednisone [IMW: predniSONE] 20 mg PO WITHBREAKFAST #6 tab 05/25/17 [Rx] Past Medical History Other HEENT History: wears glasses, has top and bottom dentures Cardiovascular History: Reports: High Cholesterol, Hypertension Respiratory History: Reports: None Gastrointestinal History: Reports: Colon Polyp Other Gastrointestinal History: occasional heartburn Genitourinary History: Reports: None Other Genitourinary History: hx kidney stones 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 Musculoskeletal History: Reports: Other (See Below) Other Musculoskeletal History: knee pain Neurological History: Reports: None Psychiatric History: Reports: None Endocrine/Metabolic History: Reports: Diabetes, Type II, Obesity/BMI 30+, Osteopenia Hematologic History: Reports: None Immunologic History: Reports: None Oncologic (Cancer) History: Reports: None Dermatologic History: Reports: None, Other (See Below) Other Dermatologic History: dry skin - Infectious Disease History Infectious Disease History: Reports: None - Past Surgical History Head Surgeries/Procedures: Reports: None HEENT Surgical History: Reports: Cataract Surgery Cardiovascular Surgical History: Reports: None Respiratory Surgical History: Reports: None GI Surgical History: Reports: Colonoscopy Female Surgical History: Reports: Other (See Below) Other Female Surgeries/Procedures: hx of hysteroscopy for uterine fibroids Neurological Surgical History: Reports: None Musculoskeletal Surgical History: Reports: None Dermatological Surgical History: Reports: None Social & Family History - Family History Family Medical History: Noncontributory HEENT: Reports: None Cardiac: Reports: High Cholesterol, Hypertension Respiratory: Reports: None GI: Reports: None : Reports: None OBGYN: Reports: None Musculoskeletal: Reports: None Neurological: Reports: None Psychiatric: Reports: None Endocrine/Metabolic: Reports: None Hematologic: Reports: None Immunologic: Reports: None Dermatologic: Reports: None Oncologic: Reports: None - Tobacco Use Smoking Status *Q: Never Smoker Years of Tobacco use: 30 Used Tobacco, but Quit: Yes Month Tobacco Last Used: Sep 2004 Second Hand Smoke Exposure: No - Caffeine Use Caffeine Use: Reports: Coffee Caffeine Use Comment: 2 cups a day - Alcohol Use Days Per Week of Alcohol Use: 0 Number of Drinks Per Day: 0 Total Drinks Per Week: 0 - Recreational Drug Use Recreational Drug Use: No Drug Use in Last 12 Months: No H&P Review of Systems - Review of Systems: Review Of Systems: ROS reveals no pertinent complaints other than HPI. General: Reports: No Symptoms HEENT: Reports: Other (Angioedema of the tongue) Cardiovascular: Reports: No Symptoms Exam - Exam Exam: See Below - Vital Signs Vital Signs: Last Vital Signs Temp 35.9 C 05/25/17 08:00 Pulse 89 05/25/17 08:00 Resp 20 05/25/17 08:00 BP 155/75 H 05/25/17 09:00 Pulse Ox 92 L 05/25/17 08:00 Weight: 111.538 kg - Exam General: Alert, Oriented HEENT: Other (Atraumatic,mucous members are moist,there is inflammation/ angioedema of her tongue,not causing any throat closure,neck supple,nontender trachea midline) Neck: Supple, Trachea Midline Lungs: Clear to Auscultation Cardiovascular: Regular Rate, Regular Rhythm GI/Abdominal Exam: Normal Bowel Sounds, Soft Back Exam: Normal Inspection Extremities: Normal Inspection, Normal Range of Motion - Patient Data Lab Results Last 24 hrs: Laboratory Results - last 24 hr 05/24/17 05/24/17 05/25/17 Range/Units 20:58 20:58 00:43 WBC 11.71 H (4.0-11.0) K/uL RBC 4.99 (4.30-5.90) M/uL Hgb 13.1 (12.0-16.0) g/dL Hct 40.9 (36.0-46.0) % MCV 82.0 (80.0-98.0) fL MCH 26.3 L (27.0-32.0) pg MCHC 32.0 (31.0-37.0) g/dL RDW Std Deviation 47.0 (28.0-62.0) fl RDW Coeff of Eleuterio 16 H (11.0-15.0) % Plt Count 354 (150-400) K/uL MPV 10.80 (7.40-12.00) fL Neut % (Auto) 53.0 (48.0-80.0) % Lymph % (Auto) 36.0 (16.0-40.0) % Barry % (Auto) 5.7 (0.0-15.0) % Eos % (Auto) 4.9 (0.0-7.0) % Baso % (Auto) 0.4 (0.0-1.5) % Neut # (Auto) 6.2 H (1.4-5.7) K/uL Lymph # (Auto) 4.2 H (0.6-2.4) K/uL Barry # (Auto) 0.7 (0.0-0.8) K/uL Eos # (Auto) 0.6 (0.0-0.7) K/uL Baso # (Auto) 0.1 (0.0-0.1) K/uL Sodium 140 (136-146) mmol/L Potassium 3.3 L (3.5-5.1) mmol/L Chloride 99 (98-110) mmol/L Carbon Dioxide 29 (21-31) mmol/L BUN 19 (6.0-23.0) mg/dL Creatinine 1.1 (0.6-1.5) mg/dL Est Cr Clr Drug Dosing 42.75 mL/min Estimated GFR (MDRD) 49.1 ml/min Glucose 189 H (60-110) mg/dL POC Glucose 149 H (60-110) mg/dL Calcium 10.0 (8.8-10.8) mg/dL Total Bilirubin 0.4 (0.1-1.5) mg/dL AST 26 (5-40) IU/L ALT 24 (8-54) IU/L Alkaline Phosphatase 76 (40-150) Total Protein 8.0 (6.0-8.0) g/dL Albumin 3.9 (3.4-4.8) g/dL Globulin 4.1 H (2.0-3.5) g/dL Albumin/Globulin Ratio 1.0 L (1.3-2.8) 05/25/17 05/25/17 05/25/17 Range/Units 05:36 06:08 08:31 WBC (4.0-11.0) K/uL RBC (4.30-5.90) M/uL Hgb (12.0-16.0) g/dL Hct (36.0-46.0) % MCV (80.0-98.0) fL MCH (27.0-32.0) pg MCHC (31.0-37.0) g/dL RDW Std Deviation (28.0-62.0) fl RDW Coeff of Eleuterio (11.0-15.0) % Plt Count (150-400) K/uL MPV (7.40-12.00) fL Neut % (Auto) (48.0-80.0) % Lymph % (Auto) (16.0-40.0) % Barry % (Auto) (0.0-15.0) % Eos % (Auto) (0.0-7.0) % Baso % (Auto) (0.0-1.5) % Neut # (Auto) (1.4-5.7) K/uL Lymph # (Auto) (0.6-2.4) K/uL Barry # (Auto) (0.0-0.8) K/uL Eos # (Auto) (0.0-0.7) K/uL Baso # (Auto) (0.0-0.1) K/uL Sodium (136-146) mmol/L Potassium 3.8 (3.5-5.1) mmol/L Chloride (98-110) mmol/L Carbon Dioxide (21-31) mmol/L BUN (6.0-23.0) mg/dL Creatinine (0.6-1.5) mg/dL Est Cr Clr Drug Dosing mL/min Estimated GFR (MDRD) ml/min Glucose (60-110) mg/dL POC Glucose 193 H 190 H (60-110) mg/dL Calcium (8.8-10.8) mg/dL Total Bilirubin (0.1-1.5) mg/dL AST (5-40) IU/L ALT (8-54) IU/L Alkaline Phosphatase (40-150) Total Protein (6.0-8.0) g/dL Albumin (3.4-4.8) g/dL Globulin (2.0-3.5) g/dL Albumin/Globulin Ratio (1.3-2.8) Result Diagrams: 05/24/17 20:58 05/25/17 08:31 *Q Meaningful Use (ADM) - VTE *Q VTE Criteria *Q: - Stroke *Q Stroke Criteria *Q: - AMI *Q AMI Criteria *Q: Problem List Initiated/Reviewed/Updated: Yes Orders Last 24hrs: Active Orders 24 hr Category Date Time Status Blood Glucose Check, Bedside [RC] QIDACANDBED Care 05/24/17 23:34 Active Ready for Discharge [RC] PER UNIT ROUTINE Care 05/25/17 09:36 Active Shaper Machine Hand Discontinue [Cardiac Monitoring Care 05/25/17 09:44 Active Discontinue] [RC] Click To Edit Telemetry Monitoring [Cardiac Monitoring] [RC] Q8H Care 05/24/17 23:30 Active Convert IV to Saline Lock [OM.PC] Routine Oth 05/24/17 23:34 Ordered Assessment/Plan Comment:: Assessment and plan: #1. Angioedema of the tongue -Patient has a past medical history of angioedema secondary to TYRELL inhibitor usage for which she is been discontinued -She should be admitted for observation to ensure angioedema does not cause any respiratory compromise -Throat is clear and no signs of throat/tracheal closure -IV Solu-Medrol Patient admitted for observation Discharge Summary Date of admission: 05/24/2017 Date of discharge: 05/25/2017 Admitting diagnosis: #1. Angioedema of the tongue without airway compromise #2. #3. #4. #5. Discharge diagnoses: #1. Angioedema of the tongue without airway compromise now resolved #2. #3. #4. #5. Consultations: None Procedures: None Hospitalization course: Patient was admitted overnight for observation patient has a previous history of angioedema secondary to TYRELL inhibitor use. Patient was given IV Solu-Medrol and observed to ensure no airway compromise. In the morning the patient has been doing much better no wheezing no shortness of breath no airway compromise no thrill closure angioedema has improved significantly patient feels quite comfortable and wants to go home. Patient is to be sent home on a prednisone taper of 4 days and follow-up with her primary care physician. Disposition on discharge: Home Condition on discharge: Stable, airway not compromise, no wheezing no shortness of breath or other respiratory issues Discharge medications: Continuation of home medication, prednisone taper for 4 days Follow-up instructions: Primary care physician Dr. Blair Lopez in 1 week's time <Blair Lopez - Last Filed: 05/27/17 12:40> H&P History of Present Illness - General Admit Problem/Dx: Admission Diagnosis/Problem Admission Diagnosis/Problem Angioedema Exam - Vital Signs Vital Signs: Last Vital Signs Temp 35.9 C 05/25/17 08:00 Pulse 89 05/25/17 08:00 Resp 20 05/25/17 08:00 BP 155/75 H 05/25/17 09:00 Pulse Ox 92 L 05/25/17 08:00 - Patient Data Result Diagrams: 05/24/17 20:58 05/25/17 08:31 *Q Meaningful Use (ADM) - VTE *Q VTE Criteria *Q: - Stroke *Q Stroke Criteria *Q: - AMI *Q AMI Criteria *Q: Assessment/Plan Comment:: I performed a history and physical examination of the patient and I have discussed the management with the resident. I have reviewed the residents note and agree with the documented findings and plan of care.
--- NOTE | 2017-05-25 11:57 | CR ---
EXAM DATE: 05/24/17 PATIENT'S AGE: 72 Patient: MONIKA KOHLER Facility: [place], [place] Site . Site : 1945 Study: XRay Chest [id number] 9:27:22 PM Ordering Physician: Gilma Sung Final Report: INDICATION: allergic reaction, no cp or SOB TECHNIQUE: Chest 1 view. COMPARISON: 04/05/17 FINDINGS: Cardiovascular and mediastinum: Heart size and vasculature are normal in caliber and appearance. Mediastinum is within normal limits. Lungs and pleural space: Lungs are clear. No sign of infiltrate or mass. No sign of pleural effusion. No pneumothorax. Bones and soft tissues: No significant findings. IMPRESSION: Unremarkable chest. Dictated by: Amador Mart MD @ 05/24/2017 22:00:04 (Electronic Signature) Report Signed by Proxy. ZOILA
== END 2017-05-25 10:10 | disposition home or self-care (01) ==
LOC: MW.ED 20:27 → MW.MS 20:46
PROVIDERS: ADMIT Internal Medicine; ATTEND Internal Medicine
DX: T78.3XXA Angioneurotic edema, initial encounter (principal); I10 Essential (primary) hypertension; E78.00 Pure hypercholesterolemia, unspecified; E11.9 Type 2 diabetes mellitus without complications; Z87.19 Personal history of other diseases of the digestive system; Z87.442 Personal history of urinary calculi; Z88.5 Allergy status to narcotic agent; Z88.8 Allergy status to other drugs, medicaments and biological substances; Z79.82 Long term (current) use of aspirin; Z79.84 Long term (current) use of oral hypoglycemic drugs; Z79.899 Other long term (current) drug therapy; Z98.890 Other specified postprocedural states
CPT/HCPCS: 36415; 71010; 80053; 82962; 84132; 85025; 93005; 96361; 96374; 96376; 99285; G0378; J1815; J2930; J3480; J7040; 99284

== ENCOUNTER 2020-12-24 07:43 | Day surgery (SDC) | payer MEDICARE, OTHER ==
[~2020-12-24 07:43] MED LIST: Lactated Ringers 1,000 ML IV SCH; Sodium Chloride 0.9% 10 ML SDV IV PRN; Sodium Chloride 0.9% 10 ML Syringe FLUSH PRN; Sodium Chloride 0.9% 2.5 ML Syringe FLUSH PRN
--- NOTE | 2020-12-24 08:59 | PCM.PREANE ---
Preanesthetic Assessment - Anesthesia/Transfusion/Family Hx Anesthesia History: Prior Anesthesia Without Reaction Other Type of Anesthesia Reaction Comment: DENIES ANY PROBLEMS WITH ANESTHESIA Family History of Anesthesia Reaction: No Transfusion History: No Prior Transfusion(s) - Review of Systems General: No Symptoms Pulmonary: No Symptoms Cardiovascular: No Symptoms Gastrointestinal: No Symptoms Neurological: No Symptoms Other: Reports: None - Physical Assessment NPO Status Date: 12/24/20 NPO Status Time: 06:30 Vital Signs: Last Vital Signs Temp 35.7 C L 12/24/20 08:47 Pulse 93 12/24/20 08:47 Resp 18 12/24/20 08:47 BP 169/68 H 12/24/20 08:47 Pulse Ox 92 L 12/24/20 08:47 Height: 1.65 m Weight: 114.759 kg ASA Class: 3 Mental Status: Alert & Oriented x3 Airway Class: Mallampati = 2 Dentition: Reports: Edentulous Thyro-Mental Finger Breadths: 3 Mouth Opening Finger Breadths: 3 ROM/Head Extension: Full Lungs: Clear to Auscultation, Normal Respiratory Effort Cardiovascular: Regular Rate, Regular Rhythm - Allergies Allergies/Adverse Reactions: Allergies Allergy/AdvReac Type Severity Reaction Status Date / Time lisinopril Allergy angioedema Verified 12/24/20 08:19 oxycodone Allergy Nausea Verified 12/24/20 08:19 - Acknowledgements Anesthesia Type Planned: MAC (The patient understands and accepts the anesthetic risks and benefits of MAC. All questions answered. Consent signed. ) Pt an Appropriate Candidate for the Planned Anesthesia: Yes Alternatives and Risks of Anesthesia Discussed w Pt/Guardian: Yes Pt/Guardian Understands and Agrees with Anesthesia Plan: Yes PreAnesthesia Questionnaire HEENT History: Reports: Other (See Below) Other HEENT History: wears glasses, has top and bottom dentures Cardiovascular History: Reports: High Cholesterol, Hypertension Respiratory History: Reports: Sleep Apnea (REFUSES TO use CPAP, spo2 92% at arrival), Other (See Below) Other Respiratory History: failed home sleep study, does not use CPAP, SOB with excertion Gastrointestinal History: Reports: Colon Polyp Other Gastrointestinal History: ulcerative colitis Genitourinary History: Reports: Renal Calculus [employer] 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: Fibroids, Musculoskeletal History: Reports: Fibromyalgia, Other (See Below) (Right Shoulder Pain) Neurological History: Reports: None Psychiatric History: Reports: Anxiety, Depression Endocrine/Metabolic History: Reports: Diabetes, Type II ([id number]), Obesity/BMI 30+, Osteopenia Hematologic History: Reports: None Immunologic History: Reports: None Oncologic (Cancer) History: Reports: None Dermatologic History: Reports: None - Infectious Disease History Infectious Disease History: Reports: Other (See Below) (COVID NEGATIVE) - Past Surgical History Head Surgeries/Procedures: Reports: None HEENT Surgical History: Reports: Cataract Surgery Cardiovascular Surgical History: Reports: None Respiratory Surgical History: Reports: None GI Surgical History: Reports: Colonoscopy Female Surgical History: Reports: Tubal Ligation, Other (See Below) Other Female Surgeries/Procedures: hx of hysteroscopy for uterine fibroids Endocrine Surgical History: Reports: None Neurological Surgical History: Reports: None Musculoskeletal Surgical History: Reports: None Oncologic Surgical History: Reports: None Dermatological Surgical History: Reports: None - History Comment History Comment: denies etoh - SUBSTANCE USE Tobacco Use Status *Q: Former Tobacco User Tobacco Use Within Last Twelve Months: No Recreational Drug Use History: No - HOME MEDS Home Medications: Home Meds Aspirin [Halfprin] 81 mg PO BEDTIME 05/06/14 [History] Simvastatin [Zocor] 20 mg PO BEDTIME 05/06/14 [History] Ubidecarenone [Co Q-10] 100 mg PO BEDTIME 05/06/14 [History] metFORMIN [Glucophage] 1,000 mg PO BID 05/06/14 [History] Hydrochlorothiazide 25 mg PO DAILY #30 tablet 04/05/17 [Rx] Albuterol [Ventolin HFA] 2 puff INH ASDIRECTED PRN 12/18/20 [History] Cholecalciferol (Vitamin D3) [Vitamin D3] 5,000 units PO DAILY 12/18/20 [History] DULoxetine HCl [Cymbalta] 60 mg PO DAILY 12/18/20 [History] Fluticasone Propionate [Flonase Allergy Relief] 2 spray NASBOTH DAILY PRN 12/18/20 [History] Menthol [Biofreeze] 1 applic TOP ASDIRECTED PRN 12/18/20 [History] amLODIPine [Norvasc] 5 mg PO DAILY 12/18/20 [History] glipiZIDE [Glipizide ER] 5 mg PO DAILY 12/18/20 [History] - CURRENT (IN HOUSE) MEDS Current Meds: Current Medications Lactated Ringer's (Ringers, Lactated) 1,000 mls @ 125 mls/hr IV ASDIRECTED HAFSA Last Admin: 12/24/20 08:45 Dose: 125 mls/hr Documented by: Sodium Chloride (Sodium Chloride 0.9% 10 Ml Syringe) 10 ml FLUSH ASDIRECTED PRN PRN Reason: Keep Vein Open Sodium Chloride (Sodium Chloride 0.9% 2.5 Ml Syringe) 2.5 ml FLUSH ASDIRECTED PRN PRN Reason: Keep Vein Open Sodium Chloride (Sodium Chloride 0.9% 10 Ml Syringe) 10 ml FLUSH ASDIRECTED PRN PRN Reason: Keep Vein Open Sodium Chloride (Sodium Chloride 0.9% 2.5 Ml Syringe) 2.5 ml FLUSH ASDIRECTED PRN PRN Reason: Keep Vein Open Sodium Chloride (Sodium Chloride 0.9% 10 Ml Sdv) 10 ml IV ASDIRECTED PRN PRN Reason: IV Use
[2020-12-24] MEDS ORDERED: Albuterol 0.083% 2.5 MG/3 ML Neb Soln NEB PRN (09:12)
[2020-12-24] MEDS ORDERED: fentaNYL 100 MCG/2 ML SDV IVPUSH PRN (09:12)
[2020-12-24] MEDS ORDERED: 50% Dextrose in Water 50 ML Syringe IVPUSH PRN (09:12)
[2020-12-24] MEDS ORDERED: Naloxone 0.4 MG/ML Syringe IVPUSH PRN (09:12)
[2020-12-24] MEDS ORDERED: EPINEPHrine 1:10,000 1 MG/10 ML Syringe IVPUSH PRN (09:12)
[2020-12-24] MEDS ORDERED: Atropine 0.1 MG/ML 10 ML Syringe IVPUSH PRN ×2 (09:12)
[2020-12-24] MEDS ORDERED: Propofol 200 MG/20 ML SDV ONE ×2 (09:43)
[2020-12-24] MEDS ORDERED: fentaNYL 100 MCG/2 ML SDV ONE (09:43)
[2020-12-24] MEDS ORDERED: Lidocaine 2% 5 ML SDV ONE (09:43)
--- NOTE | 2020-12-24 09:54 | PCM.OPNOTE ---
- General Post-Op/Procedure Note Date of Surgery/Procedure: 12/24/20 Operative Procedure(s): Screening colonoscopy Findings: Cecal polyp, diverticulosis, sigmoid colon polyp Pre Op Diagnosis: History of colon polyps Post-Op Diagnosis: Cecal polyp, sigmoid colon polyp, diverticulosis Anesthesia Technique: [facility] [place] Primary Surgeon: Argenis Pearce Condition: Good
[2020-12-24 09:59] VITALS: PULSE 79
--- NOTE | 2020-12-24 09:59 | PCM.POSTAN ---
POST ANESTHESIA ASSESSMENT - MENTAL STATUS Mental Status: Alert, Oriented - VITAL SIGNS Vital Signs: Last Vital Signs Temp 35.7 C L 12/24/20 08:47 Pulse 93 12/24/20 08:47 Resp 18 12/24/20 08:47 BP 169/68 H 12/24/20 08:47 Pulse Ox 92 L 12/24/20 08:47 - RESPIRATORY Respiratory Status: Respiratory Rate WNL, Airway Patent, O2 Saturation Stable - CARDIOVASCULAR CV Status: Pulse Rate WNL, Blood Pressure Stable - GASTROINTESTINAL GI Status: No Symptoms - PAIN Pain Score: 0 - POST OP HYDRATION Hydration Status: Adequate & Stable - OBSERVATIONS Free Text/Narrative:: No anesthesia problems
--- NOTE | 2020-12-24 10:37 | PCM48HPAN ---
Post Anesthesia Note - EVALUATION WITHIN 48HRS OF ANESTHETIC Vital Signs in Normal Range: Yes Patient Participated in Evaluation: Yes Respiratory Function Stable: Yes Airway Patent: Yes Cardiovascular Function Stable: Yes Hydration Status Stable: Yes Pain Control Satisfactory: Yes Nausea and Vomiting Control Satisfactory: Yes Mental Status Recovered: Yes Vital Signs: Last Vital Signs Temp 35.7 C L 12/24/20 08:47 Pulse 79 12/24/20 09:58 Resp 17 12/24/20 09:58 BP 137/66 12/24/20 09:58 Pulse Ox 92 L 12/24/20 09:58 - COMMENTS/OBSERVATIONS Free Text/Narrative:: No anesthesia problems
[2020-12-24 11:55] VITALS: BP 160/65
--- NOTE | 2020-12-24 20:07 | OR ---
SURGEON: ARGENIS PEARCE MD DATE OF PROCEDURE: 12/24/2020 PREOPERATIVE DIAGNOSIS: History of colon polyps. POSTOPERATIVE DIAGNOSES: 1. Diverticulosis. 2. Cecal polyp. 3. Sigmoid polyp. PROCEDURE PERFORMED: Diagnostic colonoscopy with polypectomy. PRIMARY SURGEON: Argenis Pearce MD ANESTHESIA: MAC. INSTRUMENT USED: Olympus colonoscope. EXTENT OF EXAM: To the cecum. PREPARATION: Good. LIMITATIONS: None. INDICATIONS FOR EXAMINATION: The patient is a 75-year-old female with a past medical history significant for colon polyps. It has been 5 years since her last colonoscopy, and she is due for a repeat scope. I explained the procedure, expected perioperative course, and the risks. She verbalized understanding and wishes to proceed. PROCEDURE IN DETAIL: The patient was brought into the endoscopy suite and placed in a left lateral decubitus position. A time-out was completed verifying the patient's name, age, date of , allergies, and procedure to be performed. Monitored anesthesia care was induced and continuous oxygen was provided via nasal cannula throughout the procedure. After adequate sedation was achieved, a digital rectal exam was performed. This exam was within normal limits. A well-lubricated colonoscope was inserted in the rectum and advanced under direct visualization to the level of the cecum. The cecum was identified by both visual and anatomic landmarks. Within the cecal cap, the patient was noted to have a small pedunculated polyp. This was removed in piecemeal fashion using cold biopsy forceps. The scope was unable to be retroflexed within the cecum due to looping of the scope more proximally. The scope was then fully withdrawn while examining the color, texture, anatomy, and integrity of the mucosa from the cecum to the anal canal. The patient was found to have diverticulosis throughout the sigmoid colon. In the mid sigmoid colon, she had another pedunculated polyp. This was removed in piecemeal fashion using cold biopsy forceps. The scope was then brought in the rectum and retroflexed to allow visualization of the anal canal opening. This appeared normal and a photograph was taken. The scope was then straightened out and fully withdrawn. The cecum to anus time was 15 minutes. The patient tolerated the procedure well and was transferred to the PACU in stable condition. ENDOSCOPIC DIAGNOSES: 1. Diverticulosis. 2. Cecal polyp. 3. Sigmoid polyp. RECOMMENDATIONS: Follow up in clinic in 2 weeks. RYAN RAWLS /[id number]
== END 2020-12-24 10:50 | disposition home or self-care (01) ==
LOC: MW.SDS 07:43
PROVIDERS: ATTEND Surgery
DX: Z12.11 Encounter for screening for malignant neoplasm of colon (principal); D12.0 Benign neoplasm of cecum; K57.30 Diverticulosis of large intestine without perforation or abscess without bleeding; E66.9 Obesity, unspecified; G47.30 Sleep apnea, unspecified; E78.00 Pure hypercholesterolemia, unspecified; I10 Essential (primary) hypertension; Z88.8 Allergy status to other drugs, medicaments and biological substances; Z88.5 Allergy status to narcotic agent; Z79.899 Other long term (current) drug therapy; Z79.82 Long term (current) use of aspirin; Z79.84 Long term (current) use of oral hypoglycemic drugs; Z98.890 Other specified postprocedural states; Z87.891 Personal history of nicotine dependence; Z68.41 Body mass index [BMI] 40.0-44.9, adult
CPT/HCPCS: 45380; 82962; 88305; J2704; J3010; J7120

== ENCOUNTER 2023-09-11 09:12 | Inpatient (IN) | payer MEDICARE, OTHER ==
[2023-09-11] MEDS ORDERED: Acetaminophen 500 MG Tab PO ONE (09:21)
[2023-09-11 09:41] LABS: BASE EXCESS VENOUS 4.1 (-2.0-3.0); HEMATOCRIT 42.7 % (37.0-47.0); HEMOGLOBIN 13.9 g/dL (12.0-16.0); MEAN CORPUSCULAR HEMOGLOBIN 27.7 pg (28.0-32.0); MEAN CORPUSCULAR HGB CONC 32.6 g/dL (32.0-36.0); MEAN CORPUSCULAR VOLUME 85.1 fL (83.0-99.0); MEAN PLATELET VOLUME 10.8 fL (9.4-12.3); PH,VENOUS 7.41 (7.31-7.41); PLATELET COUNT,PLT 181 K/uL (150-400); RED BLOOD CELL COUNT 5.02 M/uL (4.10-5.30); WHITE BLOOD CELL COUNT,WBC 9.44 K/uL (3.9-11.3)
[2023-09-11 09:57] LABS: D-DIMER QUANTITATIVE 0.94 mg/L FEU (0.00-0.50); INR 1.2 (0.86-1.11); PTT,PARTIAL THROMBOPLSTIN TIME 32.9 SEC (23.9-30.7)
[2023-09-11 10:07] LABS: A/G RATIO 0.6 (0.9-1.6); BILIRUBIN TOTAL 0.4 mg/dL (0.2-1.0); CARBON DIOXIDE,CO2 29.2 mmol/L (21.0-32.0); EST CRCL DRUG DOSING (CG) 43.07 mL/min; MAGNESIUM 1.7 mg/dL (1.8-2.4); POTASSIUM,K 3.9 mmol/L (3.5-5.1); PROTEIN TOTAL,TP 8.1 g/dL (6.4-8.2)
[2023-09-11 10:08] LABS: EOSINOPHILS ABSOLUTE MAN 0.09 K/uL (0.00-0.45); EOSINOPHILS PERCENT MAN 1 % (0-6); LYMPHOCYTES ABSOLUTE MAN 2.83 K/uL (1.00-4.80); LYMPHOCYTES PERCENT MAN 30 % (24-44); MONOCYTES PERCENT MAN 17 % (0-8); SEG NEUTROPHILS ABSOLUTE MAN 4.91 K/uL (1.80-7.70); SEG NEUTROPHILS PERCENT MAN 52 % (41-71)
[2023-09-11 10:22] LABS: CORONAVIRUS COVID-19 NAA NEGATIVE (NEGATIVE); INFLUENZA A NAA POSITIVE (NEGATIVE); INFLUENZA B NAA NEGATIVE (NEGATIVE)
[2023-09-11] MEDS ORDERED: Azithromycin 500 MG in Sodium Chloride 0.9% 250 ML IV ONE (10:23)
[2023-09-11] MEDS ORDERED: Oseltamivir 75 MG Cap PO ONE (10:23)
[2023-09-11] MEDS ORDERED: cefTRIAXone 1 GM in Sodium Chloride 0.9% 50 ML IV ONE (10:23)
[2023-09-11] MEDS ORDERED: Iopamidol 755 MG/ML 500 ML Multipack Bottle IVPUSH STA (10:52)
[2023-09-11 13:21] LABS: COLOR,URINE YELLOW; GLUCOSE,URINE NEGATIVE (NEGATIVE); KETONES,URINE TRACE mg/dL (NEGATIVE); LEUKOCYTE ESTERASE,URINE NEGATIVE (NEGATIVE); NITRITE,URINE NEGATIVE (NEGATIVE); OCCULT BLOOD,URINE NEGATIVE (NEGATIVE); PH,URINE 5.5 (5.0-8.0); PROTEIN,URINE TRACE mg/dL (NEGATIVE); UROBILINOGEN,URINE 0.2 EU/dL (<2.0)
[2023-09-11 13:30] LABS: APPEARANCE,URINE HAZY; BILIRUBIN,URINE SMALL (NEGATIVE)
[2023-09-11 13:31] LABS: MUCUS,URINE FEW (NONE-MOD); RBC,URINE 0-1 (0-2/HPF)
[2023-09-11 13:32] LABS: BACTERIA,URINE 1+ (NEGATIVE); EPITHELIAL CELLS,URINE MODERATE (NONE-FEW)
[2023-09-11] MEDS ORDERED: 50% Dextrose in Water 50 ML Syringe IVPUSH PRN (13:46)
[2023-09-11] MEDS ORDERED: Glucagon,Human Recombinant 1 MG Vial IM PRN (13:46)
[2023-09-11] MEDS ORDERED: Ondansetron 4 MG/2 ML SDV IVPUSH PRN (13:46)
[2023-09-11] MEDS: cefTRIAXone 1 GM in Sodium Chloride 0.9% 50 ML IV SCH (16:33)
[2023-09-11] MEDS: Enoxaparin 40 MG/0.4 ML Syringe SUBCUT SCH (17:38)
[2023-09-11] MEDS: Insulin Aspart 100 Units/ML 3 ML Pen SUBCUT SCH (17:49)
[2023-09-11] MEDS: Simvastatin 10 MG Tab PO SCH (20:00)
[2023-09-11] MEDS: Oseltamivir 75 MG Cap PO SCH (20:00)
[2023-09-12 06:42] LABS: HEMATOCRIT 40.1 % (37.0-47.0); HEMOGLOBIN 12.9 g/dL (12.0-16.0); MEAN CORPUSCULAR HEMOGLOBIN 27.7 pg (28.0-32.0); MEAN CORPUSCULAR HGB CONC 32.2 g/dL (32.0-36.0); MEAN CORPUSCULAR VOLUME 86.1 fL (83.0-99.0); MEAN PLATELET VOLUME 11.4 fL (9.4-12.3); PLATELET COUNT,PLT 140 K/uL (150-400); RED BLOOD CELL COUNT 4.66 M/uL (4.10-5.30); WHITE BLOOD CELL COUNT,WBC 6.57 K/uL (3.9-11.3)
[2023-09-12 06:58] LABS: CALCIUM 8.3 mg/dL (8.5-10.1); CREATININE 0.8 mg/dL (0.6-1.0); EST CRCL DRUG DOSING (CG) 53.83 mL/min; POTASSIUM,K 3.7 mmol/L (3.5-5.1)
[2023-09-12 07:13] LABS: BASOPHILS ABSOLUTE MAN 0.07 K/uL (0.00-0.20); BASOPHILS PERCENT MAN 1 % (0-1); LYMPHOCYTES ABSOLUTE MAN 2.17 K/uL (1.00-4.80); LYMPHOCYTES PERCENT MAN 33 % (24-44); MONOCYTES ABSOLUTE MAN 1.64 K/uL (0.00-0.80); MONOCYTES PERCENT MAN 25 % (0-8); SEG NEUTROPHILS ABSOLUTE MAN 2.69 K/uL (1.80-7.70); SEG NEUTROPHILS PERCENT MAN 41 % (41-71)
[2023-09-12] MEDS: Insulin Aspart 100 Units/ML 3 ML Pen SUBCUT SCH ×3 (07:30→16:57)
[2023-09-12] MEDS: Acetaminophen 325 MG Tab PO PRN ×2 (07:35→17:26)
[2023-09-12] MEDS: DULoxetine 60 MG Cap PO SCH (08:55)
[2023-09-12] MEDS: amLODIPine 5 MG Tab PO SCH (08:55)
[2023-09-12] MEDS: Hydrochlorothiazide 25 MG Tab PO SCH (08:55)
[2023-09-12] MEDS: Oseltamivir 75 MG Cap PO SCH ×2 (08:55→20:16)
[2023-09-12] MEDS: Azithromycin 500 MG in Sodium Chloride 0.9% 250 ML IV SCH (10:25)
[2023-09-12] MEDS: cefTRIAXone 1 GM in Sodium Chloride 0.9% 50 ML IV SCH (13:38)
[2023-09-12] MEDS: Enoxaparin 40 MG/0.4 ML Syringe SUBCUT SCH (13:39)
[2023-09-12] MEDS: Simvastatin 10 MG Tab PO SCH (20:16)
[2023-09-13] MEDS: Acetaminophen 325 MG Tab PO PRN ×2 (05:48→20:29)
[2023-09-13 06:24] LABS: HEMOGLOBIN 13.8 g/dL (12.0-16.0); MEAN CORPUSCULAR HEMOGLOBIN 28.4 pg (28.0-32.0); MEAN CORPUSCULAR HGB CONC 32.9 g/dL (32.0-36.0); MEAN CORPUSCULAR VOLUME 86.4 fL (83.0-99.0); MEAN PLATELET VOLUME 11.4 fL (9.4-12.3); PLATELET COUNT,PLT 160 K/uL (150-400); RED BLOOD CELL COUNT 4.86 M/uL (4.10-5.30); WHITE BLOOD CELL COUNT,WBC 5.36 K/uL (3.9-11.3)
[2023-09-13 06:52] LABS: CALCIUM 8.5 mg/dL (8.5-10.1); CARBON DIOXIDE,CO2 29.8 mmol/L (21.0-32.0); CREATININE 0.8 mg/dL (0.6-1.0); EST CRCL DRUG DOSING (CG) 53.83 mL/min; POTASSIUM,K 3.4 mmol/L (3.5-5.1)
[2023-09-13 07:12] LABS: EOSINOPHILS ABSOLUTE MAN 0.16 K/uL (0.00-0.45); EOSINOPHILS PERCENT MAN 3 % (0-6)
[2023-09-13 07:13] LABS: MONOCYTES ABSOLUTE MAN 0.96 K/uL (0.00-0.80); MONOCYTES PERCENT MAN 18 % (0-8)
[2023-09-13 07:14] LABS: LYMPHOCYTES PERCENT MAN 43 % (24-44); SEG NEUTROPHILS ABSOLUTE MAN 1.93 K/uL (1.80-7.70); SEG NEUTROPHILS PERCENT MAN 36 % (41-71)
[2023-09-13] MEDS ORDERED: Potassium Chloride 20 MEQ Tab.ER PO ONE (07:20)
[2023-09-13] MEDS: Insulin Aspart 100 Units/ML 3 ML Pen SUBCUT SCH ×3 (08:36→17:46)
[2023-09-13] MEDS: Hydrochlorothiazide 25 MG Tab PO SCH (08:38)
[2023-09-13] MEDS: DULoxetine 60 MG Cap PO SCH (08:38)
[2023-09-13] MEDS: amLODIPine 5 MG Tab PO SCH (08:39)
[2023-09-13] MEDS: Oseltamivir 75 MG Cap PO SCH ×2 (08:40→20:28)
[2023-09-13] MEDS: Azithromycin 500 MG in Sodium Chloride 0.9% 250 ML IV SCH (11:09)
[2023-09-13] MEDS: cefTRIAXone 1 GM in Sodium Chloride 0.9% 50 ML IV SCH (15:00)
[2023-09-13] MEDS: Enoxaparin 40 MG/0.4 ML Syringe SUBCUT SCH (15:01)
[2023-09-13] MEDS: Simvastatin 10 MG Tab PO SCH (20:28)
[2023-09-14 05:19] LABS: HEMATOCRIT 40.8 % (37.0-47.0); HEMOGLOBIN 13.4 g/dL (12.0-16.0); MEAN CORPUSCULAR HGB CONC 32.8 g/dL (32.0-36.0); MEAN CORPUSCULAR VOLUME 85.4 fL (83.0-99.0); MEAN PLATELET VOLUME 10.2 fL (9.4-12.3); PLATELET COUNT,PLT 157 K/uL (150-400); RED BLOOD CELL COUNT 4.78 M/uL (4.10-5.30); WHITE BLOOD CELL COUNT,WBC 4.86 K/uL (3.9-11.3)
[2023-09-14 05:37] LABS: CALCIUM 8.8 mg/dL (8.5-10.1); CARBON DIOXIDE,CO2 34.5 mmol/L (21.0-32.0); CREATININE 0.8 mg/dL (0.6-1.0); EST CRCL DRUG DOSING (CG) 53.83 mL/min; POTASSIUM,K 3.6 mmol/L (3.5-5.1)
[2023-09-14 05:49] LABS: LYMPHOCYTES ABSOLUTE MAN 2.62 K/uL (1.00-4.80); LYMPHOCYTES PERCENT MAN 54 % (24-44); MONOCYTES ABSOLUTE MAN 0.78 K/uL (0.00-0.80); MONOCYTES PERCENT MAN 16 % (0-8); SEG NEUTROPHILS ABSOLUTE MAN 1.46 K/uL (1.80-7.70); SEG NEUTROPHILS PERCENT MAN 30 % (41-71)
[2023-09-14] MEDS: Insulin Aspart 100 Units/ML 3 ML Pen SUBCUT SCH ×3 (06:59→17:11)
[2023-09-14] MEDS: DULoxetine 60 MG Cap PO SCH (08:49)
[2023-09-14] MEDS: Celecoxib 100 MG Cap PO SCH (08:49)
[2023-09-14] MEDS: Hydrochlorothiazide 25 MG Tab PO SCH (08:49)
[2023-09-14] MEDS: amLODIPine 5 MG Tab PO SCH (08:50)
[2023-09-14] MEDS: Losartan 50 MG Tab PO SCH (08:50)
[2023-09-14] MEDS: Oseltamivir 75 MG Cap PO SCH ×2 (08:50→22:31)
[2023-09-14] MEDS: Acetaminophen 325 MG Tab PO PRN (09:04)
[2023-09-14] MEDS: Azithromycin 500 MG in Sodium Chloride 0.9% 250 ML IV SCH (09:05)
[2023-09-14] MEDS: Albuterol/Ipratropium 3.0-0.5 MG/3 ML Neb Soln NEB PRN ×2 (09:19→16:16)
[2023-09-14] MEDS: cefTRIAXone 1 GM in Sodium Chloride 0.9% 50 ML IV SCH (13:49)
[2023-09-14] MEDS: Enoxaparin 40 MG/0.4 ML Syringe SUBCUT SCH (13:54)
[2023-09-14] MEDS ORDERED: Simvastatin 10 MG Tab PO SCH (21:00)
[2023-09-14] MEDS: Simvastatin 10 MG Tab PO SCH (22:33)
[2023-09-15] MEDS: Insulin Aspart 100 Units/ML 3 ML Pen SUBCUT SCH (06:33)
[2023-09-15 08:49] LABS: BASOPHILS ABSOLUTE AUTO 0.03 K/uL (0.00-0.20); BASOPHILS PERCENT AUTO 0.5 % (0.0-1.0); EOSINOPHILS ABSOLUTE AUTO 0.08 K/uL (0.00-0.45); EOSINOPHILS PERCENT AUTO 1.2 % (0.0-6.0); HEMATOCRIT 43.6 % (37.0-47.0); HEMOGLOBIN 14.3 g/dL (12.0-16.0); IMMATURE GRAN ABSOLUTE AUTO 0.01 K/uL (0.00-0.05); IMMATURE GRAN PERCENT AUTO 0.2 % (0.0-0.4); LYMPHOCYTES ABSOLUTE AUTO 3.18 K/uL (1.00-4.80); LYMPHOCYTES PERCENT AUTO 49.1 % (24.0-44.0); MEAN CORPUSCULAR HEMOGLOBIN 28.1 pg (28.0-32.0); MEAN CORPUSCULAR HGB CONC 32.8 g/dL (32.0-36.0); MEAN CORPUSCULAR VOLUME 85.8 fL (83.0-99.0); MEAN PLATELET VOLUME 11.1 fL (9.4-12.3); MONOCYTES ABSOLUTE AUTO 1.06 K/uL (0.00-0.80); MONOCYTES PERCENT AUTO 16.4 % (0.0-8.0); NEUTROPHILS ABSOLUTE AUTO 2.12 K/uL (1.80-7.70); NEUTROPHILS PERCENT AUTO 32.6 % (41.0-71.0); PLATELET COUNT,PLT 184 K/uL (150-400); RED BLOOD CELL COUNT 5.08 M/uL (4.10-5.30); WHITE BLOOD CELL COUNT,WBC 6.48 K/uL (3.9-11.3)
[2023-09-15 08:58] LABS: CARBON DIOXIDE,CO2 34.7 mmol/L (21.0-32.0); CREATININE 0.9 mg/dL (0.6-1.0); EST CRCL DRUG DOSING (CG) 47.85 mL/min; POTASSIUM,K 3.5 mmol/L (3.5-5.1)
[2023-09-15] MEDS: Losartan 50 MG Tab PO SCH (09:59)
[2023-09-15] MEDS: Hydrochlorothiazide 25 MG Tab PO SCH (09:59)
[2023-09-15] MEDS: Celecoxib 100 MG Cap PO SCH (09:59)
[2023-09-15] MEDS: DULoxetine 60 MG Cap PO SCH (10:01)
[2023-09-15] MEDS: Oseltamivir 75 MG Cap PO SCH (10:01)
[2023-09-15] MEDS: amLODIPine 5 MG Tab PO SCH (10:01)
[2023-09-15] MEDS: Azithromycin 500 MG in Sodium Chloride 0.9% 250 ML IV SCH (10:02)
[2023-09-15] MEDS: Acetaminophen 325 MG Tab PO PRN (10:09)
[2023-09-15 12:15] VITALS: PULSE 77
[2023-09-15 17:04] VITALS: BP 127/87
== END 2023-09-15 12:10 | disposition home or self-care (01) | DRG 193 ==
LOC: MW.ED 09:12 → MW.MS 12:43
PROVIDERS: ADMIT Internal Medicine; ATTEND Internal Medicine
PROC: 4A03XR1 Measurement of Arterial Saturation, Peripheral, External Approach (ICD-10-PCS; principal; 2023-09-11)
DX: J10.01 Influenza due to other identified influenza virus with the same other identified influenza virus pneumonia (principal); J96.01 Acute respiratory failure with hypoxia; Z66 Do not resuscitate; F41.9 Anxiety disorder, unspecified; E11.9 Type 2 diabetes mellitus without complications; E78.00 Pure hypercholesterolemia, unspecified; M79.7 Fibromyalgia; I10 Essential (primary) hypertension; Z79.82 Long term (current) use of aspirin; Z99.81 Dependence on supplemental oxygen; E78.5 Hyperlipidemia, unspecified; E66.9 Obesity, unspecified; Z20.822 Contact with and (suspected) exposure to COVID-19; E83.42 Hypomagnesemia; F32.A Depression, unspecified; E11.65 Type 2 diabetes mellitus with hyperglycemia; Z88.5 Allergy status to narcotic agent; Z88.8 Allergy status to other drugs, medicaments and biological substances; Z79.84 Long term (current) use of oral hypoglycemic drugs; Z79.899 Other long term (current) drug therapy; Z98.49 Cataract extraction status, unspecified eye; Z98.890 Other specified postprocedural states; Z11.52 Encounter for screening for COVID-19; Z99.89 Dependence on other enabling machines and devices; Z68.38 Body mass index [BMI] 38.0-38.9, adult
CPT/HCPCS: 0240U; 36415; 70450; 71045; 71275; 80048; 80053; 81001; 82803; 82947; 83605; 83735; 83880; 84484; 85025; 85379; 85610; 85730; 87040; 93005; 94640; 96365; 96375; 99285; 93010; 99222; 99232; 99239; 99291; A9270-GY; J0456; J0696; J1650; J1815-GY; J3490; J7050; J7620-GY; Q9967